=== PATIENT | male | born 1955 | race Caucasian/White ===

== ENCOUNTER → 2022-05-25 | Outpatient (CLI) | payer MEDICARE | LOC: HEART CORB 09:15 | DX: R07.2 Precordial pain (principal); R06.2 Wheezing; I77.9 Disorder of arteries and arterioles, unspecified; I10 Essential (primary) hypertension; E78.5 Hyperlipidemia, unspecified; E11.9 Type 2 diabetes mellitus without complications; F10.10 Alcohol abuse, uncomplicated | CPT/HCPCS: 78452; A9502; J2785 ==